=== PATIENT | female | born 1975 | race Two or more races ===

== ENCOUNTER → 2017-01-10 | Outpatient (CLI) | payer BC ==
[2017-01-10 14:51] LABS: BUN 18 mg/dL (7-18)
[2017-01-10 14:56] LABS: GFR (ESTIMATED) 61 ML/MIN (59-)
== END ==
LOC: MAY-LAB 13:37
PROVIDERS: Internal Medicine
DX: I25.10 Atherosclerotic heart disease of native coronary artery without angina pectoris (principal)